=== PATIENT | male | born 1970 | race Caucasian/White ===

== ENCOUNTER 2018-03-01 15:01 | Emergency (ER) | payer OTHER ==
[2018-03-01 15:07] VITALS: BP 136/95
--- NOTE | 2018-03-01 15:35 | EDPHY ---
H & P Stated Complaint: blood in stool Time Seen by Provider: 03/01/18 15:35 HPI/ROS: HPI: This is a 47-year-old male who presents with Chief Complaint: Blood in stool Location: Stool Quality: Blood Duration: 3-4 days Signs and Symptoms: no fever, no nausea, no vomiting, no hematemesis, + blood in stool, no abdominal bloating, no diarrhea, no back pain, no urinary symptoms , no testicular/groin pain, no indigestion, no chest pain, no shortness of breath Timing: Acute, intermittent episodes Severity: Mild Context: Patient is generally healthy, presents with complaints of 3-4 days of blood in his stool when he wipes on his tissue paper. He reports that 4 days ago he had to strain to have a bowel movement and felt a tearing sensation in his rectal area with resultant pain that was [id number] in nature. He reports that he "is a little bit OCD and is always cleaning the area with bathroom wipes." He has noted a take like area and the portion of his rectal area that does not hurt to touch the area. Approximately 7-10 days ago he took ibuprofen 3 times a day for a tooth infection for approximately 5 days. Denies regular alcohol use. Denies abdominal pain, nausea, vomiting, hematemesis, abdominal blowing, diarrhea. No history of colon cancer in the family. Denies weight loss. Modifying Factors: None Comment: ROS: A comprehensive 10 system review of systems is otherwise negative aside from elements mentioned in the history of present illness. MEDICAL/SURGICAL/SOCIAL HISTORY: Medical history: Generally healthy. Does not take any regular medications. Surgical history: Denies Social history: Never smoked. Family history noncontributory. CONSTITUTIONAL: Polite and cooperative middle-aged male, awake and alert, no obvious distress HEENT: Atraumatic and normocephalic, PERRL, EOMI. Nares patent; no rhinorrhea; no nasal mucosal edema. Tympanic membranes clear. Oropharynx clear, no exudate and moist pink mucosa. Airway patent. No lymphadenopathy. No meningismus. Cardiovascular: Normal S1/S2, regular rate, regular rhythm, without murmur rub or gallop. PULMONARY/CHEST: Symmetrical and nontender. Clear to auscultation bilaterally. Good air movement. No accessory muscle usage. ABDOMEN: Soft, nondistended, nontender, no rebound, no guarding, no peritoneal signs, no masses or organomegaly. No CVAT. RECTAL: Good sphincter tone, light brown stool in vault, + external hemorrhoids- non thrombosed, no fissures, no palpable masses, guaiac negative EXTREMITIES: 2/2 pulses, strength 5/5, no deformities, no clubbing, no cyanosis or edema. NEUROLOGICAL: no focal neuro deficits. GCS 15. SKIN: Warm and dry, no erythema. no rash. Good capillary refill. Source: Patient Exam Limitations: No limitations - Personal History Current Tetanus/Diphtheria Vaccine: Unsure Current Tetanus Diphtheria and Acellular Pertussis (TDAP): Unsure - Medical/Surgical History Hx Asthma: No Hx Chronic Respiratory Disease: No Hx Diabetes: No Hx Cardiac Disease: No Hx Renal Disease: No Hx Cirrhosis: No Hx Alcoholism: No Hx HIV/AIDS: No Hx Splenectomy or Spleen Trauma: No Other PMH: denies - Social History Smoking Status: Never smoked Constitutional: Initial Vital Signs Temperature (C) 37 C 03/01/18 15:05 Heart Rate 79 03/01/18 15:05 Respiratory Rate 16 03/01/18 15:05 Blood Pressure 136/95 H 03/01/18 15:05 O2 Sat (%) 97 03/01/18 15:05 O2 Delivery Mode Room Air Allergies/Adverse Reactions: No Known Allergies Allergy (Unverified 03/01/18 15:05) Home Medications: Medication Instructions Recorded Hydrocortisone Acetate 25 mg FL Q6 PRN #7 supp 03/01/18 [Hemorrhoidal Hc 25 mg supp (*)] Medical Decision Making ED Course/Re-evaluation: Vital signs reviewed and stable upon arrival. Physical exam shows external hemorrhoids that are nonthrombosed. Guaiac negative. Abdomen is soft and nontender and doubt surgical process or need for imaging. Given a prescription for Anusol HC, constipation prevention measures and gastroenterology follow-up for colonoscopy This patient was seen under the supervision of my secondary supervising physician. I evaluated care for this patient independently. Discussed this patient with Dr. Javier who did not see the patient. Differential Diagnosis: Differential diagnosis includes but is not limited to peptic ulcer disease, gastritis with hemorrhage, diverticulitis, rectal fistula, anal fissure, hemorrhoids. Departure - Departure Disposition: Home, Routine, Self-Care Clinical Impression: External hemorrhoids without complication Condition: Good Instructions: Hemorrhoids (ED), Rectal Bleeding (ED) Additional Instructions: Consume a minimum of 8-10 glasses of water or electrolyte fluid replacement drinks that include Gatorade, Powerade, Pedialyte. Take MiraLax daily as needed for constipation. Do not strain to have a bowel movement. Use Anusol HC suppositories every 6 hr as needed for rectal irritation. Follow-up with Gastroenterology if bleeding continues to occur as you may need a colonoscopy. Referrals: Amparo Quinteros MD [Medical Doctor] - As per Instructions Prescriptions: Hydrocortisone Acetate [Hemorrhoidal Hc 25 mg supp (*)] 25 mg FL Q6 PRN #7 supp PRN Reason: Pain, Hemorrhoid
== END 2018-03-01 16:00 | disposition home or self-care (01) ==
DX: K62.5 Hemorrhage of anus and rectum (principal)